=== PATIENT | female | born 1970 | race Caucasian/White ===

== ENCOUNTER 2018-04-19 09:15 | Outpatient (CLI) | payer OTHER ==
--- NOTE | 2018-04-19 11:53 | Ultrasound Report ---
Procedure Date: 04/19/2018 Accession Number: [id number] / [id number] Procedure: US - Head or Neck Soft Tissue CPT Code: FULL RESULT: EXAM: Head or Neck Soft Tissue DATE: 04/19/2018 10:08 AM CLINICAL HISTORY: Pain inferior to the right ear TECHNIQUE: Real time scanning by the mission planner was saved static images reviewed. COMPARISON: None FINDINGS: There is a normal-appearing 1.6 x 0.4 x 0.6 cm lymph node in the area of pain inferior to the right year. No cystic or solid mass or abnormal fluid collection is seen. IMPRESSION: No significant abnormality in the area of pain inferior to the right ear by ultrasound. A small normal-appearing lymph node is present. If symptoms persist consider CT.
== END 2018-04-19 09:16 | disposition home or self-care (01) ==
LOC: DI 09:15
PROVIDERS: ATTEND Family Medicine
DX: R59.0 Localized enlarged lymph nodes (principal)
CPT/HCPCS: 76536

== ENCOUNTER 2019-02-13 09:24 | Outpatient (CLI) | payer OTHER ==
[2019-02-13] MEDS ORDERED: ALBUTEROL NEB 2.5 MG/3 ML INH ONE (10:00)
== END 2019-02-13 09:25 | disposition home or self-care (01) ==
LOC: RT 09:24
PROVIDERS: ATTEND Family Medicine
DX: R53.83 Other fatigue (principal); R06.00 Dyspnea, unspecified
CPT/HCPCS: 94010

== ENCOUNTER 2019-02-15 09:12 | Outpatient (CLI) | payer OTHER | END 2019-02-15 09:13 | disposition home or self-care (01) | LOC: DI 09:12 | PROVIDERS: ATTEND Family Medicine | DX: R53.83 Other fatigue (principal); R06.00 Dyspnea, unspecified; R07.9 Chest pain, unspecified; R00.2 Palpitations | CPT/HCPCS: 93306 ==

== ENCOUNTER 2022-07-18 21:35 | Emergency (ER) | payer BC, OTHER ==
--- NOTE | 2022-07-18 21:49 | ED Physician Documentation ---
History of Present Illness - Stated complaint Stated Complaint: MUSCLE SPASMS - Chief complaint Chief Complaint: General - History obtained from History obtained from: Patient - History of Present Illness Timing: Enter time (21:00), Today Pain level max: 0 Pain level now: 0 - Additonal information Additional information: at approximately 9 PM tonight, patient had nausea, "whole body started buzzing" (per patient), with rapid onset of arms and legs locking into a partial flexion position/cotton weigher position. She denies headache at this time (has had some recent headaches which she says were typical of her migraines (has been diagnosed with migraine headaches)). Denies LOC and was responsive during this event. No focal nor unilateral component to her description of symptoms. She was brushing her teeth when the symptoms started. Denies feeling anxious, denies hyperventilating. Denies h/o these symptoms. At time of this HPI, she only c/o generalized weakness. She was T+R from this ED 4 days ago for symptoms that were possibly related to hypoglycemia (FSBS was 53 on arrival despite no h/o diabetes nor hypoglycemia). She says she has been checking blood sugars since that visit with readings no lower than 70s. She has had extensive work-up in the past for symptoms that have some similarity to the recent symptoms she has been experiencing (mostly similar to symptoms she had four days ago than tonight), with evaluation by neurology, ophthoneurology, and internal medicine and testing including MRI/MRA of brain as well as EEG. She says the results did not yield any diagnosis, with EEG having some sort of abnormality but deemed "inconclusive" (per patient). Review of Systems Constitutional: reports: Reviewed and negative Eyes: reports: Reviewed and negative Cardiac: reports: Reviewed and negative Respiratory: reports: Reviewed and negative GI: reports: Nausea. denies: Abdominal Pain, Vomiting Neurologic: reports: Generalized weakness. denies: Focal weakness, Numbness, Difficulty speaking, Confused, Altered mental status, Unresponsive, Headache (recently but not today), Head injury, LOC PD PAST MEDICAL HISTORY - Past Medical History Past Medical History: Yes Cardiovascular: None Respiratory: None Neuro: None Endocrine/Autoimmune: None GI: None Psych: Depression Musculoskeletal: None - Past Surgical History Past Surgical History: Yes /EXECUTIVE ASSOCIATE: section HEENT: Tonsil/Adenoidectomy - Allergies Allergies/Adverse Reactions: Allergies Allergy/AdvReac Type Severity Reaction Status Date / Time codeine Allergy Rash Verified 07/18/22 21:42 ibuprofen AdvReac Dizziness Verified 07/18/22 21:42 - Social History Does the pt smoke?: No Smoking Status: Never smoker Does the pt drink ETOH?: No Does the pt have substance abuse?: No - Immunizations Immunizations are current?: Yes PD ED PE NORMAL - Vitals Vital signs reviewed: Yes - General General: Alert and oriented X 3, No acute distress, Well developed/nourished - HEENT HEENT: PERRL, EOMI, Moist mucous membranes - Neck Neck: Supple, no meningeal sign - Cardiac Cardiac: RRR, No murmur - Respiratory Respiratory: No respiratory distress, Clear bilaterally - Abdomen Abdomen: Soft, Non tender - Neuro Neuro: Alert and oriented X 3, capacity planning analyst 2-12 intact, No motor deficit, No sensory deficit, Normal speech Eye Opening: Spontaneous Motor: Obeys Commands Verbal: Oriented GCS Score: 15 Results - Vitals Vitals: Oxygen O2 Source Room air - Labs Labs: Laboratory Tests 07/18/22 07/18/22 07/18/22 21:55 21:55 22:03 WBC 5.5 RBC 4.64 Hgb 13.9 Hct 40.9 MCV 88.1 MCH 30.0 MCHC 34.0 RDW 13.1 Plt Count 231 MPV 11.0 H Neut # (Auto) 3.8 Lymph # (Auto) 1.0 L Walker # (Auto) 0.6 Eos # (Auto) 0.0 Baso # (Auto) 0.0 Absolute Nucleated RBC 0.00 Nucleated RBC % 0.0 Sodium 137 Potassium 3.5 Chloride 101 Carbon Dioxide 25 Anion Gap 11.0 BUN 15 Creatinine 0.9 Estimated GFR (MDRD) 65 L Glucose 149 H POC Whole Bld Glucose 133 H Calcium 9.3 Total Bilirubin 0.6 AST 27 ALT 29 Alkaline Phosphatase 64 Total Protein 7.2 Albumin 4.2 Globulin 3.0 Albumin/Globulin Ratio 1.4 Lipase 32 PD MEDICAL DECISION MAKING - ED course Complexity details: reviewed old records, reviewed results, re-evaluated patient, considered differential, d/w patient ED course: NAD , afebrile , normal vital signs during ED stay. Unremarkable blood tests tonight (CBC, ER abdominal panel); blood glucose is 149 on the lab draw, 133 on subsequent fingerstick. Her test results from four days ago included magnesium level, insulin level, cortisol level, TSH, and ESR; these results were all normal. Her description of solange's event would be inconsistent with GTC seizure (no LOC, no post-ictal phase). No evidence of hypoglycemia at this time and description of BUE>BLE spasm/tonicity would not be explicable with low blood sugar. Description is also inconsistent with CVA (lack of unilateral/focal symptoms, and would expect weakness rather than hypertonicity), mass lesion such as tumor (no new nor current headache, no visual changes, and symptoms were transient and resolved); thus no neuroimaging performed at this time. We discussed solange's test results as well as the tests performed on previous visit which were still pending results (such as the insulin level). The lack of etiology for her symptoms was discussed. She has an upcoming, establishing visit with a local primary care provider scheduled for early July. We discussed return precautions. Departure - Departure Disposition: 01 Home, Self Care Clinical Impression: Generalized weakness Condition: Good Instructions: ED Symptoms No Dx Comments: The results of solange's blood tests are unremarkable (your blood sugar was a little high but not nearly high enough to cause any symptoms). The cause of your symptoms is not apparent at this time, particularly when combined with the blood tests performed on your other, recent visit to this ER (a few more tests were performed at that time, such as insulin level, cortisol level, magnesium level with unremarkable results and thus not repeated tonight). Follow up with your primary care provider as scheduled. Discharge Date/Time: 07/18/22 23:59
[2022-07-18 22:15] LABS: BASOPHILS % (AUTO) 0.5 %; HCT - HEMATOCRIT 40.9 % (37.0-47.0); HGB - HEMOGLOBIN 13.9 g/dL (12.0-16.0); MEAN CORPUSCULAR VOLUME 88.1 fL (81.0-99.0); MONOCYTES # (AUTO) 0.6 10^3/uL (0.0-1.0); MONOCYTES % (AUTO) 11.3 %; NEUTROPHILS # (AUTO) 3.8 10^3/uL (1.5-6.6); NEUTROPHILS % (AUTO) 68.8 %; PLT - PLATELET COUNT 231 10^3/uL (130-450); RED BLOOD COUNT 4.64 10^6/uL (4.20-5.40); RED CELL DISTRIBUTION WIDTH 13.1 % (12.0-15.0); WHITE BLOOD COUNT 5.5 x10^3/uL (4.8-10.8)
[2022-07-18 22:26] LABS: ALBUMIN 4.2 g/dL (3.2-5.5); ALBUMIN/GLOBULIN RATIO 1.4 (1.0-2.2); BILIRUBIN,TOTAL 0.6 mg/dL (0.2-1.0); CALCIUM 9.3 mg/dL (8.5-10.3); CREATININE 0.9 mg/dL (0.4-1.0); POTASSIUM 3.5 mmol/L (3.5-5.0); TOTAL PROTEIN 7.2 g/dL (6.7-8.2)
[2022-07-18 23:55] VITALS: BP 113/83
== END 2022-07-18 23:59 | disposition home or self-care (01) ==
LOC: ED 21:35
DX: R53.1 Weakness (principal)
CPT/HCPCS: 36415; 80053; 83690; 85025; 99284